=== PATIENT | female | born 1960 | race Two or more races ===

== ENCOUNTER 2024-08-14 19:28 | Emergency (ER) | payer OTHER, MEDICAID ==
[~2024-08-14] VITALS: Ht 154.9 cm; Wt 64.2 kg
[2024-08-14 19:38] VITALS: BP 153/70; PULSE 72; RESP 16; TEMP 98.1; O2SAT 95
--- NOTE | 2024-08-14 20:06 | DVH ---
EXAM: CT HEAD WITHOUT CONTRAST INDICATION: fall TECHNIQUE: CT of the head without intravenous contrast. Radiation Dose Information: CT Dose: CTDI volume is 52.59 mGy. Dose-length product is 843.16 mGy*cm The dose indicators for CT are the volume Computed Tomography (CT) Dose Index (CTDIvol) and the Dose Length Product (DLP), and are measured in units of mGy and mGy-cm, respectively. These indicators are not patient dose, but values generated from the CT scanner acquisition factors. The report includes radiation exposure data for exposures received during this examination. COMPARISON: None FINDINGS: There is no evidence of acute intracranial hemorrhage, extra-axial collection, mass effect, midline s hift, herniation or hydrocephalus. The ventricles, sulci and cisterns are age appropriate. The patricio-white differentiation is intact. Patchy periventricular and subcortical white matter hypoattenuation is nonspecific but may be related to small vessel ischemic disease. The visualized paranasal sinuses and mastoid air cells are clear. The surrounding soft tissues and osseous structures are unremarkable. IMPRESSION: 1. No acute intracranial abnormality.
--- NOTE | 2024-08-14 20:24 | ED.PDOC ---
History of Present Illness HPI Comments 64-year-old female with history of rheumatoid arthritis, Sjogren's syndrome, hypertension here today with complaints of generalized headache status post ground level trip and fall. Patient was running to fly a kite when she tripped and fell backwards hitting her head. No loss of consciousness. No neck pain. Feels slightly nauseous but no vomiting. No dizziness. No focal numbness or weakness. No chest, back, or abdominal pain. No wounds. No bleeding. No other pain or symptoms. Patient is here requesting a CT scan of the head just to be safe. Chief Complaint: Head Injury Time Seen by MD: 19:36 Primary Care Provider: DR YI Allergies: Coded Allergies: NO KNOWN ALLERGIES (Unverified , 08/14/24) Information Source: Patient Mode of Arrival: Ambulatory Past Medical History PAST MEDICAL HISTORY: HTN (Sjogren's syndrome, rheumatoid arthritis) Physical Exam General Appearance: No Apparent Distress, Normal, Other (Sitting in examination chair laughing given her trip and fall while flying a [place], no distress, pleasant demeanor) HEENT: Head (No trauma, no hematoma, no open wound), Normal ENT Inspection, Pharynx Normal, TMs Normal Neck: Full Range of Motion, Non-Tender, Normal, Normal Inspection Respiratory: Chest Non-Tender, Lungs Clear, No Accessory Muscle Use, No Respiratory Distress, Normal Breath Sounds Cardiovascular: No Edema, No JVD, No Murmur, No Gallop, Normal Peripheral Pulses, Regular Rate/Rhythm Breast Exam: Deferred Gastrointestinal: No Organomegaly, Non Tender, No Pulsatile Mass, Normal Bowel Sounds, Soft Genitalia: Deferred Pelvic: Deferred Rectal: Deferred Extremities: No calf tenderness, Normal capillary refill, Normal inspection, Normal range of motion, Non-tender, No pedal edema Musculoskeletal : Apperance: Normal Neurologic: Alert, bleach maker II-XII nml as Tested, No Motor Deficits, Normal Affect, Normal Mood, No Sensory Deficits Cerebellar Function: NOT DONE Reflexes: NOT DONE Skin: Dry, Normal Color, Warm Lymphatic: No Adenopathy Was a procedure done? Was a procedure done?: No Differential Dx Considerations may include: Headache, concussion, epidural hematoma, subdural hematoma, skull fracture, cervical spine fracture or dislocation, TBI, laceration, hematoma, abrasion X-Ray, Labs, Meds, VS Vital Signs Date Time Temp Pulse Resp B/P (MAP) Pulse Ox O2 Delivery O2 Flow Rate FiO2 08/14/24 19:38 98.1 72 16 153/70 (97) 95 98.1 X-Ray, Labs, Meds, VS Comment Patient presents following head trauma with features concerning for concussion including headache and nausea. Pain controlled in the emergency department and patient ambulating and tolerating PO without difficulty. Discussed course of concussion over the next 7-10 days and importance of brain rest including minimal screen time. Reviewed concussion precautions including return-to- activity with light activity beginning after 48 hours, avoidance of second-hit syndrome (by avoiding high risk activities), and importance of follow-up with primary care provider before return to full activity. Patient with discharge to daughter who can provide observation at home. Reviewed return precautions including, but not limited to worsening and severe headache, PO intolerance, altered mental status, confusion. Patient is in agreement with the plan and all questions answered. Considered EDH, SDH, ICH, but consider these to be less likely based on above history/physical/evaluation. Images Reviewed?: Images reviewed and evaluated by me Time of 1ST Reevaluation: 20:23 Reevaluation 1ST: Improved Patient Education/Counseling: Diagnosis, Treatment, Prognosis, Need For Follow Up Family Education/Counseling: Diagnosis, Treatment, Prognosis, Need For Follow Up Departure 1 Departure Time of Disposition: 20:23 Impression: Primary Impression: Concussion Disposition: 01 HOME / SELF CARE / HOMELESS Condition: Stable Discharged With: Relative (daughter) Critical Care Note Critical Care Time?: No Stability Stability form required: No Heart Score Heart Score: Heart Score Response (Comments) Value History N/A 0 EKG N/A 0 Age N/A 0 Risk Factors N/A 0 Troponin N/A 0 Total 0 DOUGLAS MOBLEY MD Aug 14, 2024 20:24
== END 2024-08-14 22:03 | disposition home or self-care (01) ==
LOC: ER 19:33
DX: S06.0X0A Concussion without loss of consciousness, initial encounter (principal); I10 Essential (primary) hypertension; M06.9 Rheumatoid arthritis, unspecified; M35.00 Sjogren syndrome, unspecified; W01.0XXA Fall on same level from slipping, tripping and stumbling without subsequent striking against object, initial encounter; Y93.02 Activity, running; Y92.89 Other specified places as the place of occurrence of the external cause; Y99.8 Other external cause status
CPT/HCPCS: 70450

== ENCOUNTER 2024-11-25 08:54 | Inpatient (IN) | payer OTHER, MEDICAID ==
[~2024-11-25] VITALS: Ht 157.5 cm; Wt 48.1 kg
[2024-11-25 09:33] LABS: Hematocrit 44.8 % (36.0-46.0); Hemoglobin 15.8 g/dL (12.2-16.2); Mean Corpuscular Hemoglobin 30.2 pg (28.0-32.0); Mean Corpuscular Volume 85.9 fL (80.0-100.0); Nucleated Red Blood Cells % 0.2 %
--- NOTE | 2024-11-25 09:42 | ED.PDOC ---
HPI (NEURO) HPI Comments This is a 64 year old female presenting to the ED with chief complaint of dizziness. Patient reports that she has been experiencing dizziness with the room spinning and associated nausea, vomiting, and weakness since yesterday. Patient relays that she has history of vertigo. Patient denies any SOB, chest pain, headache, abdominal pain, or syncope. Chief Complaint: Dizziness Time Seen by MD: 09:41 Primary Care Provider: DR YI Reviewed Notes: Nurses Notes, Medications, Allergies Information Source: Patient Mode of Arrival: Wheelchair Severity: Moderate Dizziness/Weakness Severity: Unable to do activities Timing: Days Duration: Since onset Prehospital treatment: None Weakness Location: Generalized Onset: At rest Circumstances: Spontaneous Symptoms: Vertigo Modifying factors: Nothing Associated Signs and Symptoms: Nausea, Vomiting Past Medical History PAST MEDICAL HISTORY: HTN, Thyroid Past Medical History (Other): Vertigo Surgical History: Denies all surgeries 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 Family History Family History: Reviewed,noncontributory to illness Social History Smoker: Non-Smoker Alcohol: Denies ETOH Use Drugs: Denies Drug Use Lives In: Home Constitutional: reports: weakness; denies: chills, diaphoresis, fatigue, fever, malaise, sweats, others EENTM: denies: blurred vision, double vision, ear bleeding, ear discharge, ear drainage, ear pain, ear ringing, eye pain, eye redness, hearing loss, mouth pain, mouth swelling, nasal discharge, nose bleeding, nose congestion, nose pain, photophobia, tearing, throat pain, throat swelling, voice changes, others Respiratory: denies: cough, hemoptysis, orthopnea, SOB at rest, shortness of breath, SOB with excertion, stridor, wheezing, others Cardiovascular: denies: chest pain, dizzy spells, diaphoresis, Dyspnea on exertion, edema, irregular heart beat, left arm pain, lightheadedness, palpitations, PND, syncope, others Gastrointestinal: reports: nausea, vomiting; denies: abdomen distended, abdominal pain, blood streaked bowels, constipated, diarrhea, dysphagia, difficulty swallowing, hematemesis, melena, poor appetite, poor fluid intake, rectal bleeding, rectal pain, others Genitourinary: denies: abnormal vagina bleeding, burning, dyspareunia, dysuria, flank pain, frequency, hematuria, incontinence, pain, , vagina discharge, urgency, others Neurological: reports: dizziness; denies: fainting, headache, left sided numbness, left sided weakness, numbness, paresthesia, pre-existing deficit, right sided numbness, right sided weakness, seizure, speech problems, tingling, tremors, weakness, others Musculoskeletal: denies: back pain, gout, joint pain, joint swelling, muscle pain, muscle stiffness, neck pain, others Integumetry: denies: bruises, change in color, change in hair/nails, dryness, laceration, lesions, lumps, rash, wounds, others Allergic/Immunocompromised: denies: Difficulty Healing, Frequent Infections, Hives, Itching, others Hematologic/Lymphatic: denies: anemia, blood clots, easy bleeding, easy bruising, swollen glands, others Endocrine: denies: excessive hunger, excessive sweating, excessive thirst, excessive urination, flushing, intolerance to cold, intolerance to heat, unexplained weight gain, unexplained weight loss, others Psychiatric: denies: anxiety, bipolar disorder, depression, hopeless, panic disorder, schizophrenia, sleepless, suicidal, others All Other Systems: Reviewed and Negative Physical Exam General Appearance: Moderate Distress, Normal HEENT: Normal ENT Inspection, Pharynx Normal, TMs Normal Neck: Full Range of Motion, Non-Tender, Normal, Normal Inspection Respiratory: Chest Non-Tender, Lungs Clear, No Accessory Muscle Use, No Respiratory Distress, Normal Breath Sounds Cardiovascular: No Edema, No JVD, No Murmur, No Gallop, Normal Peripheral Pulses, Regular Rate/Rhythm Breast Exam: Deferred Gastrointestinal: No Organomegaly, Non Tender, No Pulsatile Mass, Normal Bowel Sounds, Soft Genitalia: Deferred Pelvic: Deferred Rectal: Deferred Extremities: No calf tenderness, Normal capillary refill, Normal inspection, Normal range of motion, Non-tender, No pedal edema Musculoskeletal : Apperance: Normal Neurologic: Alert, overcoil stepper II-XII nml as Tested, No Motor Deficits, Normal Affect, Normal Mood, No Sensory Deficits Cerebellar Function: NOT DONE Reflexes: NOT DONE Skin: Dry, Normal Color, Warm Peripheral Pulses: 3+ Radial (R), 3+ Radial (L) Lymphatic: No Adenopathy Was a procedure done? Was a procedure done?: No Differential Diagnosis (SZ) Seizure: Psychogenic Seizure, Closed Head Injury, CVA/TIA X-Ray, Labs, Meds, VS Vital Signs Date Time Temp Pulse Resp B/P (MAP) Pulse Ox O2 Delivery O2 Flow Rate FiO2 11/25/24 09:09 62 11/25/24 08:55 97.4 60 18 138/60 100 97.4 Lab Test 11/25/24 09:17 Range/Units White Blood Count 4.7 4.4-10.8 10^3/uL Red Blood Count 5.22 H 4.0-5.20 10^6/uL Hemoglobin 15.8 12.2-16.2 g/dL Hematocrit 44.8 36.0-46.0 % Mean Corpuscular Volume 85.9 80.0-100.0 fL Mean Corpuscular Hemoglobin 30.2 28.0-32.0 pg Mean Corpuscular Hemoglobin Concent 35.2 32.0-36.0 g/dL Red Cell Distribution Width 13.0 11.8-14.3 % Platelet Count 165 140-450 10^3/uL Mean Platelet Volume 7.8 6.9-10.8 fL Neutrophils (%) (Auto) 65.3 37.0-80.0 % Lymphocytes (%) (Auto) 25.1 10.0-50.0 % Monocytes (%) (Auto) 6.7 0.0-12.0 % Eosinophils (%) (Auto) 2.5 0.0-7.0 % Basophils (%) (Auto) 0.4 0.0-2.0 % Neutrophils # (Auto) 3.0 1.6-8.6 10 ^3/uL Lymphocytes # (Auto) 1.2 0.4-5.4 10 ^3/uL Monocytes # (Auto) 0.3 0-1.3 10 ^3/uL Eosinophils # (Auto) 0.1 0-0.8 10 ^3/uL Basophils # (Auto) 0 0-0.2 10 ^3/uL Nucleated Red Blood Cells 0.2 % Sodium Level 141 136-145 mmol/L Potassium Level 3.4 L 3.5-5.1 mmol/L Chloride Level 107 98-107 mmol/L Carbon Dioxide Level 23 20-31 mmol/L Anion Gap 11 5-15 Blood Urea Nitrogen 10 9-23 mg/dL Creatinine 0.76 0.550-1.02 mg/dL Glomerular Filtration Rate Calc 86 >90 mL/min BUN/Creatinine Ratio 13.2 10.0-20.0 Serum Glucose 110 H 74-106 mg/dL Calcium Level 9.9 8.7-10.4 mg/dL Troponin I High Sensitivity 16 </=34 ng/L Patient alert. Complaining of dizziness. Unable to stand up without having dizziness. Vitals stable. WBC within normal limits. Autonomic disorder. Potassium is low. Was given potassium. Explained to the patient. Continue monitoring. Time of 1ST Reevaluation: 10:41 Reevaluation 1ST: Unchanged Patient Education/Counseling: Diagnosis, Treatment Family Education/Counseling: No Family Present Departure 1 Departure Time of Disposition: 11:20 Impression: Primary Impression: Autonomic disorder Disposition: ADMITTED INPATIENT Admit to: Med Surg Condition: Guarded Critical Care Note Critical Care Time?: Yes (90 min-critical care time only) Stability Stability form required: No Heart Score Heart Score: Heart Score Response (Comments) Value History Slightly Suspicious 0 EKG Normal 0 Age >65 2 Risk Factors >3 or Hx ASHD 2 Troponin Normal limit 0 Total 4 I personally scribed for VONDA MARTINEZ MD ([email or web address]) on 11/25/24 at 09:42. El ectronically submitted by Teo Wong ([email or web address]). VONDA MARTINEZ MD Nov 25, 2024 09:42
[2024-11-25 09:43] LABS: Chloride 107 mmol/L (98-107); Sodium 141 mmol/L (136-145)
[2024-11-25 09:44] LABS: Anion Gap 11 (5-15); Calcium 9.9 mg/dL (8.7-10.4); Carbon Dioxide 23 mmol/L (20-31)
[2024-11-25 09:49] LABS: BUN/Creatinine Ratio 13.2 (10.0-20.0); Blood Urea Nitrogen 10 mg/dL (9-23); Glucose 110 mg/dL (74-106); Potassium 3.4 mmol/L (3.5-5.1)
[2024-11-25] MEDS: POTASSIUM EFFERVESENT TAB 25 MEQ PO ONE (11:34)
[2024-11-25] MEDS: LORazepam 2MG/ML-1ML VIAL IV ONE (12:20)
[2024-11-25 12:25] VITALS: PULSE 79; RESP 20; O2SAT 96
[2024-11-25 12:32] LABS: Urine Amorphous Crystal FEW /hpf (None Seen); Urine Protein, UAD TRACE (Negative)
[2024-11-25] MEDS: ONDANSETRON ODT 4 MG TAB PO ONE (17:51)
--- NOTE | 2024-11-25 20:12 | DVHHP2 ---
Admitting Diagnosis: dizziness History of Present Illness This is a 64 year old female presenting to the ED with chief complaint of dizziness. Patient reports that she has been experiencing dizziness with the ro om spinning and associated nausea, vomiting, and weakness since yesterday. Patient relays that she has history of vertigo. Patient denies any SOB, chest pain, headache, abdominal pain, or syncope. 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 No apparent distress HEENT-atraumatic, normocephalic Heart-regular rate and rhythm lungs clear to auscultate Abdomen soft nontender nondistended Musculoskeletal-no edema cyanosis Neuro-AO x3, strength and sensation intact SEPSIS Sepsis Screen Date sepsis recognized/suspect: Nov 25, 2024 Time Sepsis recognized/suspect: 08 Recent Procedure: No On Antibiotic Therapy: No Respiratory Rate >20: No Heart Rate >90: No Temp<36 C (96.8 F) or >38.3 C: No SBP <90 or MAP <65 mmHG: No New Acute Mental Status Change: No Is the patient on CPAP, BIPAP,: No Physician Orders Cardiac Diet-2gna,Lofat,Lochol (11/25/24 Dinner) Potassium Er Tablet (Klor-Con Tablet) (11/25/24 20:15) Head Without Contrast (11/25/24 20:46) Neuro Checks Per Unit Protocol (11/25/24 20:46) * Neurology Consult (11/25/24 20:46) Meclizine Tablet (Antivert Tablet) (11/25/24 21:00) Complete Blood Count (11/26/24 05:00) Complete Blood Count (11/27/24 05:00) Complete Blood Count (11/28/24 05:00) Complete Blood Count (11/29/24 05:00) Complete Blood Count (11/30/24 05:00) Comprehensive Metabolic Panel (11/26/24 05:00) Comprehensive Metabolic Panel (11/27/24 05:00) Comprehensive Metabolic Panel (11/28/24 05:00) Comprehensive Metabolic Panel (11/29/24 05:00) Comprehensive Metabolic Panel (11/30/24 05:00) C-Reactive Protein (11/25/24 20:46) NS (11/25/24 21:00) Vital Signs Date Time Temp Pulse Resp B/P (MAP) Pulse Ox O2 Delivery O2 Flow Rate FiO2 11/25/24 17:52 97.5 63 14 144/68 (93) 98 97.5 11/25/24 14:33 97.4 69 18 124/65 (84) 97 97.4 11/25/24 12:25 79 20 96 Room Air* 0 21 11/25/24 11:24 66 16 97 Room Air 11/25/24 11:24 97.7 66 16 140/65 (90) 97 97.7 11/25/24 09:09 62 11/25/24 08:55 97.4 60 18 138/60 100 97.4 Laboratory Tests Test 11/25/24 09:17 White Blood Count 4.7 10^3/uL (4.4-10.8) Medications Medications Dose Ordered Sig/Sylwia Route Start Time Stop Time Status Last Admin Dose Admin Lorazepam 1 mg ONCE ONCE IV 11/25/24 10:30 11/25/24 10:31 DC 11/25/24 12:20 Ondansetron HCl 4 mg ONCE ONCE PO 11/25/24 17:15 11/25/24 17:16 DC 11/25/24 17:51 Potassium Bicarbonate 25 meq ONCE ONCE PO 11/25/24 10:30 11/25/24 10:31 DC 11/25/24 11:34 Results Labs Test 11/25/24 11:14 11/25/24 09:17 Range/Units Urine Color Light-orange Yellow Urine Clarity Ex.turbid Clear Urine pH 8.5 5.0-9.0 Urine Specific [place] 1.017 1.001-1.035 Urine Protein Trace H Negative Urine Ketones Negative Negative Urine Blood Negative Negative /uL Urine Nitrite Negative Negative Urine Bilirubin Negative Negative Urine Urobilinogen Normal Negative mg/dL Urine Leukocyte Esterase 1+ Negative /uL Urine RBC 2 0 - 4 /hpf Urine Microscopic WBC 5 0-5 /HPF Urine Squamous Epithelial Cells Few <5 /hpf Urine Amorphous Crystals Few None Seen /hpf Urine Bacteria Few H None Seen /hpf Urine Mucus Few None Seen Urine Glucose Normal Normal mg/dL White Blood Count 4.7 4.4-10.8 10^3/uL Red Blood Count 5.22 H 4.0-5.20 10^6/uL Hemoglobin 15.8 12.2-16.2 g/dL Hematocrit 44.8 36.0-46.0 % Mean Corpuscular Volume 85.9 80.0-100.0 fL Mean Corpuscular Hemoglobin 30.2 28.0-32.0 pg Mean Corpuscular Hemoglobin Concent 35.2 32.0-36.0 g/dL Red Cell Distribution Width 13.0 11.8-14.3 % Platelet Count 165 140-450 10^3/uL Mean Platelet Volume 7.8 6.9-10.8 fL Neutrophils (%) (Auto) 65.3 37.0-80.0 % Lymphocytes (%) (Auto) 25.1 10.0-50.0 % Monocytes (%) (Auto) 6.7 0.0-12.0 % Eosinophils (%) (Auto) 2.5 0.0-7.0 % Basophils (%) (Auto) 0.4 0.0-2.0 % Neutrophils # (Auto) 3.0 1.6-8.6 10 ^3/uL Lymphocytes # (Auto) 1.2 0.4-5.4 10 ^3/uL Monocytes # (Auto) 0.3 0-1.3 10 ^3/uL Eosinophils # (Auto) 0.1 0-0.8 10 ^3/uL Basophils # (Auto) 0 0-0.2 10 ^3/uL Nucleated Red Blood Cells 0.2 % Sodium Level 141 136-145 mmol/L Potassium Level 3.4 L 3.5-5.1 mmol/L Chloride Level 107 98-107 mmol/L Carbon Dioxide Level 23 20-31 mmol/L Anion Gap 11 5-15 Blood Urea Nitrogen 10 9-23 mg/dL Creatinine 0.76 0.550-1.02 mg/dL Glomerular Filtration Rate Calc 86 >90 mL/min BUN/Creatinine Ratio 13.2 10.0-20.0 Serum Glucose 110 H 74-106 mg/dL Calcium Level 9.9 8.7-10.4 mg/dL Troponin I High Sensitivity 16 </=34 ng/L Primary Diagnosis vertigo Plan Check CT head to rule out acute intracranial hemorrhage Neuro check per floor protocol Neurology consult Resume home meds. Medication reconciliation IV fluids 25 mg t.i.d. p.r.n. for dizziness Full code Lovenox for DVT prophylaxis No GI prophylaxis needed regular diet Plan discussed with: Patient Problems List: (1) Vertigo Date of Service: Nov 25, 2024 Billing Provider: YOLA VORA MD Common Visit Codes: [id number] INP/OBS CARE (MOD) YOLA VORA MD Nov 25, 2024 20:12
[2024-11-25] MEDS ORDERED: ONDANSETRON HCL 4 MG/2 ML VIAL IV PRN (21:00)
[2024-11-25] MEDS ORDERED: DOCUSATE SOD 100 MG CAP PO PRN (21:00)
[2024-11-25] MEDS ORDERED: HYDROcodone-ACET 5/325MG TAB PO PRN (21:00)
[2024-11-25] MEDS: POTASSIUM CHL 20 Meq TABLET PO ONE (21:52)
[2024-11-25] MEDS: SODIUM CHLORIDE 0.9% 1,000 ML IV ONE (22:03)
[2024-11-25] MEDS: SODIUM CHLOR 0.9% PF (SALINE LOCK) 10ML VIAL/SYR IV SCH (22:03)
--- NOTE | 2024-11-25 22:03 | DVH ---
EXAM: CT HEAD WITHOUT CONTRAST INDICATION: vertigo TECHNIQUE: CT of the head without intravenous contrast. Radiation Dose : 1. Head: CT Dose: CTDI volume is 51.66 mGy. Dose-length product is 828.25 mGy*cm The dose indicators for CT are the volume Computed Tomography (CT) Dose Index (CTDIvol) and the Dose Length Product (DLP), and are measured in units of mGy and mGy-cm, respectively. These indicators are not patient dose, but values generated from the CT scanner acquisition factors. The report includes radiation exposure data for exposures received during this examination. COMPARISON: CT HEAD WITHOUT CONTRAST on DOS: 08/14/24 FINDINGS: There is no evidence of acute intracranial hemorrhage, extra-axial collection, mass effect, midline s hift, herniation or hydrocephalus. The ventricles, sulci and cisterns are age appropriate. The patricio-white differentiation is intact. Patchy periventricular and subcortical white matter hypoattenuation is nonspecific but may be related to small vessel ischemic disease. The visualized paranasal sinuses and mastoid air cells are clear. The surrounding soft tissues and osseous structures are unremarkable. IMPRESSION: 1. No acute intracranial abnormality. Radiation optimization: All CT scans at this facility use at least one of these dose optimization wojciech hniques: automated exposure control mA and/or kV adjustment per patient size (includes targeted exam s where dose is matched to clinical indication) or iterative reconstruction.
[2024-11-26 00:17] VITALS: BP 134/64; PULSE 63; RESP 16; TEMP 97.7; O2SAT 100
[2024-11-26 03:46] LABS: Hematocrit 42.4 % (36.0-46.0); Hemoglobin 15.1 g/dL (12.2-16.2); Mean Corpuscular Hemoglobin 30.5 pg (28.0-32.0); Mean Corpuscular Volume 85.9 fL (80.0-100.0); Nucleated Red Blood Cells % 0.2 %
[2024-11-26 03:55] LABS: Alanine Aminotransferase 19 U/L (7-40); Albumin 4.5 g/dL (3.2-4.8); Alkaline Phosphatase 90 U/L (46-116); Anion Gap 7 (5-15); BUN/Creatinine Ratio 16.3 (10.0-20.0); Bilirubin, Total 0.7 mg/dL (0.2-1.0); Blood Urea Nitrogen 13 mg/dL (9-23); Calcium 9.6 mg/dL (8.7-10.4); Carbon Dioxide 27 mmol/L (20-31); Chloride 107 mmol/L (98-107); Potassium 4.1 mmol/L (3.5-5.1); Sodium 141 mmol/L (136-145); Total Protein 7.5 g/dL (5.7-8.2)
[2024-11-26 03:59] LABS: Glucose 107 mg/dL (74-106)
[2024-11-26 04:45] VITALS: BP 125/74; PULSE 60; RESP 17; TEMP 97.8; O2SAT 99
[2024-11-26] MEDS: ENOXAPARIN SOD 40 MG/0.4 ML SYRINGE SC SCH (10:11)
[2024-11-26 13:26] VITALS: BP 128/72; TEMP 98; O2SAT 99
[2024-11-26] MEDS ORDERED: PILO5TAB10 PO (13:56)
[2024-11-26] MEDS ORDERED: AMLO1TAB22 PO (13:58)
[2024-11-26] MEDS ORDERED: HYDR200T36 PO (14:00)
[2024-11-26] MEDS: MECLIZINE HCL 25 MG TAB PO PRN (15:06)
[2024-11-26] MEDS: ACETAMINOPHEN 325 MG TAB PO PRN (15:06)
[2024-11-26] MEDS ORDERED: cefTRIAXone 1GM/50ML D5W 50 ML IV ONE (15:15)
--- NOTE | 2024-11-26 15:18 | DVHPN2 ---
Subjective Clinically feeling better but still has some dizziness/vertigo sensation. Urinalysis positive for UTI. Head CT negative for any acute pathology. Changes from previous H/P or p: No Changes Objective Vitals Vital Signs Date Time Temp Pulse Resp B/P (MAP) Pulse Ox O2 Delivery O2 Flow Rate FiO2 11/26/24 13:26 98.0 128/72 (90) 99 98.0 11/26/24 04:45 60 17 11/25/24 12:25 Room Air* 0 21 Exam Alert awake oriented x3. HEENT neck supple no JVD pupils equal round react to light. Heart regular rate and rhythm S1-S2. Lungs fair air movement without rales wheezes. Abdomen soft nontender positive bowel sounds. Extremities no edema positive pulses. Neurologically no focal deficits. Medications Current Medications Medications Dose Ordered Sig/Sylwia Route Start Time Stop Time Status Last Admin Dose Admin Meclizine HCl 25 mg TID PRN PO 11/25/24 21:00 11/26/24 15:06 25 MG Sodium Chloride 10 ml Q8HR IV 11/25/24 22:00 11/26/24 15:06 10 ML Docusate Sodium 100 mg BIDPRN PRN PO 11/25/24 21:00 Acetaminophen 650 mg Q6HP PRN PO 11/25/24 21:00 11/26/24 15:06 650 MG Acetaminophen/ Hydrocodone Bitart 1 tab Q4HP PRN PO 11/25/24 21:00 Ondansetron HCl 4 mg Q4HP PRN IV 11/25/24 21:00 Enoxaparin Sodium 40 mg DAILY SC 11/26/24 10:00 11/26/24 10:11 40 MG Laboratory Results Laboratory Tests 11/26/24 02:58 Chemistry Test 11/26/24 02:58 Albumin 4.5 g/dL (3.2-4.8) Calcium Level 9.6 mg/dL (8.7-10.4) Total Protein 7.5 g/dL (5.7-8.2) LFT Test 11/26/24 02:58 Alanine Aminotransferase (ALT) 19 U/L (7-40) Alkaline Phosphatase 90 U/L (46-116) Aspartate Amino Transferase (AST) 17 U/L (13-40) Total Bilirubin 0.7 mg/dL (0.2-1.0) Urinalysis Test 11/25/24 11:14 Urine Color Light-orange (Yellow) Urine Clarity Ex.turbid (Clear) Urine pH 8.5 (5.0-9.0) Urine Specific [place] 1.017 (1.001-1.035) Urine Protein Trace (Negative) H Urine Ketones Negative (Negative) Urine Blood Negative /uL (Negative) Urine Nitrite Negative (Negative) Urine Bilirubin Negative (Negative) Urine Urobilinogen Normal mg/dL (Negative) Urine Leukocyte Esterase 1+ /uL (Negative) Urine RBC 2 /hpf (0 - 4) Urine Microscopic WBC 5 /HPF (0-5) Urine Squamous Epithelial Cells Few /hpf (<5) Urine Amorphous Crystals Few /hpf (None Seen) Urine Bacteria Few /hpf (None Seen) H Urine Mucus Few (None Seen) Urine Glucose Normal mg/dL (Normal) Assessment/Plan Assessment/Plan Her symptoms possibly could be related to acute UTI. I will send a urine for culture. Start her on empiric IV antibiotics. Meantime we will order MRI of the brain to rule out any underlying TIA/other etiologies causing her symptoms. Otherwise continue rest of supportive care and treatment. Follow clinical management per clinical course. Discussed with the patient and nurse regarding care plan at bedside. Plan discussed with: Patient, Other My Orders Orders - VIANEY SOLIZ MD Procedure Category Date Status Time Urine Bacterial KRISTA 11/26/24 Verified Culture 15:14 Ceftriaxone Ivpb PHA 11/27/24 Verified Rocephin 09:00 Ceftriaxone Ivpb PHA 11/26/24 Verified Rocephin 15:15 Orthostatic Vital ORDERS 11/26/24 Verified Signs 15:14 Brain Head Wo Contrast MRI 11/26/24 Verified 15:14 Problem List: (1) Acute UTI (urinary tract infection) (2) Autonomic disorder (3) Vertigo Date of Service: Nov 26, 2024 Billing Provider: VIANEY SOLIZ MD Common Visit Codes: [id number] INP/OBS CARE(MOD) VIANEY SOLIZ MD Nov 26, 2024 15:18
[2024-11-26] MEDS ORDERED: SOD CHL 0.45% 1,000 ML IV ONE (15:30)
--- NOTE | 2024-11-26 17:06 | DVH ---
EXAMINATION: MRI BRAIN HEAD WO CONTRAST INDICATION: Dizziness/vertigo COMPARISON: CT HEAD WITHOUT CONTRAST on DOS: 11/25/24 TECHNIQUE: Multiplanar, multisequence magnetic resonance imaging of the brain was performed without the use of i ntravenous contrast. FINDINGS: No evidence of acute infarct. There is diffusion-weighted signal in the bilateral lateral ventricles consistent with choroid plexus, normal anatomical variant. No intracranial hemorrhage. No mass effect . There is periventricular/deep white matter T2/FLAIR hyperintensity is nonspecific, but most commonly associated with chronic microvascular disease. The ventricles and sulci are normal in size for age. Clear basal cisterns. Flow voids in the major intracranial vessels are maintained. No abnormality of the orbits. Paranasal sinuses and mastoid air cells are clear. No abnormality of the visualized osseous structures and extracranial soft tissues. IMPRESSION: 1. No acute infarct, intracranial hemorrhage, mass effect, or hydrocephalus. 2. Mild white matter disease, nonspecific but most commonly associated with sequelae of chronic micro vascular ischemic changes although other etiologies are not excluded. HS:Y
[2024-11-26 20:00] VITALS: PULSE 61; RESP 16; O2SAT 99
[2024-11-26 21:00] VITALS: BP 138/76; PULSE 61; RESP 16; TEMP 97.5; O2SAT 99
[2024-11-27 01:00] VITALS: BP 125/64; PULSE 61; RESP 16; TEMP 97.5; O2SAT 98
[2024-11-27 05:00] VITALS: BP 134/71; PULSE 60; RESP 16; TEMP 97.5; O2SAT 98
[2024-11-27 07:29] LABS: Hematocrit 46.5 % (36.0-46.0); Hemoglobin 16.3 g/dL (12.2-16.2); Mean Corpuscular Hemoglobin 30.5 pg (28.0-32.0); Mean Corpuscular Volume 87.3 fL (80.0-100.0); Nucleated Red Blood Cells % 0.5 %
[2024-11-27 07:50] LABS: Alanine Aminotransferase 16 U/L (7-40); Albumin 4.6 g/dL (3.2-4.8); Alkaline Phosphatase 91 U/L (46-116); Anion Gap 8 (5-15); BUN/Creatinine Ratio 14.3 (10.0-20.0); Blood Urea Nitrogen 12 mg/dL (9-23); Calcium 9.4 mg/dL (8.7-10.4); Carbon Dioxide 28 mmol/L (20-31); Chloride 105 mmol/L (98-107); Glucose 96 mg/dL (74-106); Potassium 3.9 mmol/L (3.5-5.1); Sodium 141 mmol/L (136-145); Total Protein 7.7 g/dL (5.7-8.2)
[2024-11-27 07:51] LABS: Bilirubin, Total 0.8 mg/dL (0.2-1.0)
[2024-11-27 09:00] VITALS: BP 129/66; PULSE 55; RESP 16; TEMP 97.7; O2SAT 98
[2024-11-27] MEDS: cefTRIAXone 1GM/50ML D5W 50 ML IV SCH (09:09)
[2024-11-27 13:00] VITALS: BP 130/70; PULSE 70; RESP 17; TEMP 97.9; O2SAT 96
[2024-11-27 17:00] VITALS: BP 139/75; PULSE 62; RESP 17; TEMP 97.4; O2SAT 97
--- NOTE | 2024-11-27 18:36 | DVHINCON2 ---
Date of service: Nov 27, [address] Perkins Reason for Consultation Persistent vertigo History of Present Illness Mr. Zapata is a 64 years old right-handed female with a history of hypertension, hypothyroidism, rheumatoid arthritis, Sjogren's disease, she was admitted to the [facility] on 11/25/24 with a chief complaint of vertigo I saw her in my office for carpal tunnel syndrome On 11/25/2024, she developed dizziness where everything was moving around her, with a feeling of unsteadiness, the symptoms was intense in 1st to our, less intense in the last 1 hour, with superimposed very intense of 20 minutes spinning sensation spells triggered by reason head, getting up from bed. She had had three more diminished spinning events with from 2019 to the summer, the spinning sensation lasts for no more than 0.5 days each without specific treatment Urinalysis, 11/25/2024: WBC: 5, urine leukocyte esterase: 1+ CBC, 11/25/2024: Unremarkable CMP, 11/26/2024: Unremarkable MR head, 11/25/2024: 1. No acute infarct, intracranial hemorrhage, mass effect, or hydrocephalus. 2. Mild white matter disease, nonspecific but most commonly associated with sequelae of chronic microvascular ischemic changes although other etiologies are not excluded Past Medical History Hypertension, hypothyroidism, rheumatoid arthritis, Sjogren's disease Past Surgical History No major surgeries Family History Hypertension, diabetes, dyslipidemia, Parkinson's disease Social History She was a tobacco smoker, no history of alcohol/drug abuse Allergies: Coded Allergies: NO KNOWN ALLERGIES (Unverified , 08/14/24) Home Meds Reported Medications Hydroxychloroquine Sulfate (Hydroxychloroquine Sulfat) 200 Mg Tab, 200 MG PO DAILY for 1 Day, #1 TAB 11/26/24 Amlodipine Besylate (Amlodipine Besylate) 5 Mg Tab, 5 MG PO DAILY for 30 Days, MG 11/26/24 Pilocarpine Hcl (Salagen) 5 Mg Tab, 5 MG PO DAILY for 1 Day, #1 TAB 11/26/24 Current Medications Current Medications Medications (Trade) Dose Ordered Sig/Sylwia Route PRN Reason Start Time Stop Time Status Last Admin Ceftriaxone Sodium 50 ml @ 100 mls/hr DAILY@09 IV 11/27/24 09:00 11/27/24 09:09 Review of Systems As above, the other systems are negative Vital Signs Vital Signs Date Time Temp Pulse Resp B/P (MAP) Pulse Ox O2 Delivery O2 Flow Rate FiO2 11/27/24 17:00 97.4 62 17 139/75 (96) 97 97.4 11/27/24 07:30 Room Air* 0 21 Physical Exam GENERAL EXAM: General: the patient is well developed and nourished. No acute distress. HEENT: Normocephalic, neck is supple, no carotid bruits. No mass. RESPIRATORY: Normal respiratory effort with symmetrical lung expansion. Lungs clear to auscultation. CARDIOVASCULAR: Regular rate and rhythm with no murmurs. S1, S2. ABDOMEN: Soft, nontender, normal bowel sound NEUROLOGICAL: MENTAL STATUS: Awake and alert. Oriented to person, place, time and general circumstances. Able to give personal history. SPEECH, LANGUAGE, HIGHER CORTICAL FUNCTION: no aphasia or dysathria. CRANIAL NERVES: #2: Intact visual murray to confrontation. The optic discs were sharp.es. #3,4,6: Pupils are equal, round and reactive. EOMs full and conjugate. Mild bilateral gaze evoked nystagmus. #5: Facial sensation intact in all three divisions bilaterally. Mandibular strength intact. #7: Facial muscles symmetrical and strength intact. #8: Hearing grossly normal to voice. #9,10: Uvula and soft palate rise in the midline. Swallow and voice are normal. #11: Trapezius and sternomastoid strength intact bilaterally. #12: Tongue midline. No fasciculations or atrophy. SENSATION: Sensation to touch and pinprick is normal. MOTOR: Normal tone in the upper and lower extremity. Normal muscle bulk. No fasciculations. No abnormal movements or posturing. Muscle strength of the major groups in the upper extremities is 5/5. Muscle strength of the major groups in the lower extremities is 5/5. REFLEXES: Deep tendon reflexes normal and symmetrical. No pathological reflex es. CEREBELLAR/COORDINATION: Finger to nose and heel to simmons are normal bilaterally. GAIT/STATION: deferred. Labs/Diagnostic Data Labs Test 11/27/24 06:35 11/25/24 11:14 11/25/24 09:17 Range/Units White Blood Count 4.1 #L 4.4-10.8 10^3/uL Red Blood Count 5.33 H 4.0-5.20 10^6/uL Hemoglobin 16.3 H 12.2-16.2 g/dL Hematocrit 46.5 H 36.0-46.0 % Mean Corpuscular Volume 87.3 80.0-100.0 fL Mean Corpuscular Hemoglobin 30.5 28.0-32.0 pg Mean Corpuscular Hemoglobin Concent 35.0 32.0-36.0 g/dL Red Cell Distribution Width 13.2 11.8-14.3 % Platelet Count 169 140-450 10^3/uL Mean Platelet Volume 8.1 6.9-10.8 fL Neutrophils (%) (Auto) 52.9 37.0-80.0 % Lymphocytes (%) (Auto) 35.8 10.0-50.0 % Monocytes (%) (Auto) 7.9 0.0-12.0 % Eosinophils (%) (Auto) 3.1 0.0-7.0 % Basophils (%) (Auto) 0.3 0.0-2.0 % Neutrophils # (Auto) 2.1 1.6-8.6 10 ^3/uL Lymphocytes # (Auto) 1.5 0.4-5.4 10 ^3/uL Monocytes # (Auto) 0.3 0-1.3 10 ^3/uL Eosinophils # (Auto) 0.1 0-0.8 10 ^3/uL Basophils # (Auto) 0 0-0.2 10 ^3/uL Nucleated Red Blood Cells 0.5 % Sodium Level 141 136-145 mmol/L Potassium Level 3.9 3.5-5.1 mmol/L Chloride Level 105 98-107 mmol/L Carbon Dioxide Level 28 20-31 mmol/L Anion Gap 8 5-15 Blood Urea Nitrogen 12 9-23 mg/dL Creatinine 0.84 0.550-1.02 mg/dL Glomerular Filtration Rate Calc 77 >90 mL/min BUN/Creatinine Ratio 14.3 10.0-20.0 Serum Glucose 96 74-106 mg/dL Calcium Level 9.4 8.7-10.4 mg/dL Total Bilirubin 0.8 0.2-1.0 mg/dL Aspartate Amino Transferase (AST) 15 13-40 U/L Alanine Aminotransferase (ALT) 16 7-40 U/L Alkaline Phosphatase 91 46-116 U/L Total Protein 7.7 5.7-8.2 g/dL Albumin 4.6 3.2-4.8 g/dL Urine Color Light-orange Yellow Urine Clarity Ex.turbid Clear Urine pH 8.5 5.0-9.0 Urine Specific [place] 1.017 1.001-1.035 Urine Protein Trace H Negative Urine Ketones Negative Negative Urine Blood Negative Negative /uL Urine Nitrite Negative Negative Urine Bilirubin Negative Negative Urine Urobilinogen Normal Negative mg/dL Urine Leukocyte Esterase 1+ Negative /uL Urine RBC 2 0 - 4 /hpf Urine Microscopic WBC 5 0-5 /HPF Urine Squamous Epithelial Cells Few <5 /hpf Urine Amorphous Crystals Few None Seen /hpf Urine Bacteria Few H None Seen /hpf Urine Mucus Few None Seen Urine Glucose Normal Normal mg/dL Troponin I High Sensitivity 16 </=34 ng/L C-Reactive Protein High Sensitivity 0.05 <1.0 mg/dL Assessment Vertigo with unremarkable MRI Benign paroxysmal positional vertigo Plan/Recommendation Monitoring Supportive treatment Telemetry No more treatment or testing indicated as time Okay to discharge home in the morning from a neurologic point of view She is to follow up with me in my office Progress: Poor This medical document was created using an electronic medical record system with [employer] dictation system. Although this document has been carefully reviewed, there may still be some phonetic and typographical errors. These areas are purely typographical due to imperfections of the software programs, and do not reflect any compromise in the patient's medical care. Plan discussed with: Patient, Daughter, Other PASTOR LEONG MD Nov 27, 2024 18:36
[2024-11-27] MEDS ORDERED: MECL12.586 PO (19:25)
[2024-11-27] MEDS ORDERED: BACDST PO (19:25)
--- NOTE | 2024-11-27 19:27 | DVHDS2 ---
Discharge Summary Date of Admission Nov 25, 2024 at 20:46 Date of Discharge: Nov 27, 2024 Labs/Diagnostic Data: Laboratory Results Test 11/27/24 06:35 11/25/24 11:14 11/25/24 09:17 White Blood Count 4.1 10^3/uL (4.4-10.8) Red Blood Count 5.33 10^6/uL (4.0-5.20) Hemoglobin 16.3 g/dL (12.2-16.2) Hematocrit 46.5 % (36.0-46.0) Mean Corpuscular Volume 87.3 fL (80.0-100.0) Mean Corpuscular Hemoglobin 30.5 pg (28.0-32.0) Mean Corpuscular Hemoglobin Concent 35.0 g/dL (32.0-36.0) Red Cell Distribution Width 13.2 % (11.8-14.3) Platelet Count 169 10^3/uL (140-450) Mean Platelet Volume 8.1 fL (6.9-10.8) Neutrophils (%) (Auto) 52.9 % (37.0-80.0) Lymphocytes (%) (Auto) 35.8 % (10.0-50.0) Monocytes (%) (Auto) 7.9 % (0.0-12.0) Eosinophils (%) (Auto) 3.1 % (0.0-7.0) Basophils (%) (Auto) 0.3 % (0.0-2.0) Neutrophils # (Auto) 2.1 10 ^3/uL (1.6-8.6) Lymphocytes # (Auto) 1.5 10 ^3/uL (0.4-5.4) Monocytes # (Auto) 0.3 10 ^3/uL (0-1.3) Eosinophils # (Auto) 0.1 10 ^3/uL (0-0.8) Basophils # (Auto) 0 10 ^3/uL (0-0.2) Nucleated Red Blood Cells 0.5 % Sodium Level 141 mmol/L (136-145) Potassium Level 3.9 mmol/L (3.5-5.1) Chloride Level 105 mmol/L (98-107) Carbon Dioxide Level 28 mmol/L (20-31) Anion Gap 8 (5-15) Blood Urea Nitrogen 12 mg/dL (9-23) Creatinine 0.84 mg/dL (0.550-1.02) Glomerular Filtration Rate Calc 77 mL/min (>90) BUN/Creatinine Ratio 14.3 (10.0-20.0) Serum Glucose 96 mg/dL (74-106) Calcium Level 9.4 mg/dL (8.7-10.4) Total Bilirubin 0.8 mg/dL (0.2-1.0) Aspartate Amino Transferase (AST) 15 U/L (13-40) Alanine Aminotransferase (ALT) 16 U/L (7-40) Alkaline Phosphatase 91 U/L (46-116) Total Protein 7.7 g/dL (5.7-8.2) Albumin 4.6 g/dL (3.2-4.8) Urine Color Light-orange (Yellow) Urine Clarity Ex.turbid (Clear) Urine pH 8.5 (5.0-9.0) Urine Specific [place] 1.017 (1.001-1.035) Urine Protein Trace (Negative) Urine Ketones Negative (Negative) Urine Blood Negative /uL (Negative) Urine Nitrite Negative (Negative) Urine Bilirubin Negative (Negative) Urine Urobilinogen Normal mg/dL (Negative) Urine Leukocyte Esterase 1+ /uL (Negative) Urine RBC 2 /hpf (0 - 4) Urine Microscopic WBC 5 /HPF (0-5) Urine Squamous Epithelial Cells Few /hpf (<5) Urine Amorphous Crystals Few /hpf (None Seen) Urine Bacteria Few /hpf (None Seen) Urine Mucus Few (None Seen) Urine Glucose Normal mg/dL (Normal) Troponin I High Sensitivity 16 ng/L (</=34) C-Reactive Protein High Sensitivity 0.05 mg/dL (<1.0) Other Laboratory Tests 11/27/24 06:35 Brief Hx & Hospital Course: This is a 64 year old female presenting to the ED with chief complaint of dizziness. Patient reports that she has been experiencing dizziness with the room spinning and associated nausea, vomiting, and weakness since yesterday. Patient relays that she has history of vertigo. Patient denies any SOB, chest pain, headache, abdominal pain, or syncope. She is admitted and evaluated. Noted to have mild urinary tract infection. Patient had MRI of the brain which is unremarkable without any acute pathology. Patient empirically treated with the meclizine and seemed to improve her symptoms. [place] patient probably has been an positional vertigo. Neurologist felt she is stable to be discharged home with outpatient follow up. Given the patient is feeling better having had necessary workup and evaluations it is felt she could be safely discharged home. Patient is advised to continue antibiotic and meclizine as prescribed and have follow up with the PCP and neurologist. Patient verbalized understanding over hospital diagnosis and treatment she received, discharge medications, discharge instructions and agree with the follow up plan of care as outlined. Condition at Discharge: Stable Final Diagnosis/Problems List Benign positional vertigo, acute UTI Discharge Disposition: Home Discharge Instruct/Medications Diet: Consistent carbohydrate, Cardiac 2g Na,low cholest Activity: No Restrictions, As Tolerated Follow Up/Referral: Follow up with neurologist next week as mentioned and primary care physician after two weeks. Medications: Take the medications as prescribed and other home medications as you were taking. Scheduled Amlodipine Besylate (Amlodipine Besylate), 5 MG PO DAILY, (Reported) Hydroxychloroquine Sulfate (Hydroxychloroquine Sulfat), 200 MG PO DAILY, (Reported) Meclizine Hcl (Meclizine Hcl), 1 TAB PO BID Pilocarpine Hcl (Salagen), 5 MG PO DAILY, (Reported) Sulfamethoxazole W/Trimethopri (Bactrim Ds Tablet), 1 TAB PO BID Discharge Statement: "Patient was advised to return to the ER or call 911 if any headaches, dizziness, shortness of breath, chest pain, abdominal pain, bleeding, fevers, or worsening of medical condition. Patient was counseled about treatment plan, medications, possible side effects, patientverbalized understanding. All questions were answered to the best of my ability. This discharge took greater then 30 minutes in planning, reviewing documentation, counseling the patient, and discussing with other team members." ASSESSMENT ASSESSMENT Assessment Benign positional vertigo, acute UTI Date of Service: Nov 27, 2024 Billing Provider: VIANEY SOLIZ MD Common Visit Codes: 69346-YGM/OBS DISCH DAY <30MIN VIANEY SOLIZ MD Nov 27, 2024 19:27
[2024-11-27 19:48] VITALS: BP 122/68; PULSE 78; RESP 18; TEMP 97.8; O2SAT 97
== END 2024-11-27 20:07 | disposition home or self-care (01) | DRG 149 ==
LOC: ER 08:54 → OVERFLOW 20:46 → EAST 11-26 17:15
PROVIDERS: ADMIT Internal Medicine; ATTEND Internal Medicine
DX: H81.10 Benign paroxysmal vertigo, unspecified ear (principal); N39.0 Urinary tract infection, site not specified; I10 Essential (primary) hypertension; G90.89 Other disorders of autonomic nervous system; Z82.49 Family history of ischemic heart disease and other diseases of the circulatory system; Z83.3 Family history of diabetes mellitus; Z82.0 Family history of epilepsy and other diseases of the nervous system; Z79.899 Other long term (current) drug therapy
CPT/HCPCS: 36415; 70450; 70551; 80048; 80053; 81001; 84484; 85025; 86141; 96374; 99291; 99292; G0378; Q0162